=== PATIENT | male | born 1965 | race Caucasian/White ===

== ENCOUNTER → 2019-09-01 08:19 | Outpatient (BNVA) | payer MEDICARE, MEDICAID, SELFPAY | PROVIDERS: Family Provider Nurse Practitioner Psychiatric/Mental Health; Visit Provider Nurse Practitioner Psychiatric/Mental Health | DX: F20.5 Residual schizophrenia (principal); F41.1 Generalized anxiety disorder; F84.0 Autistic disorder | CPT/HCPCS: 99213 ==

== ENCOUNTER → 2019-12-01 07:45 | Outpatient (BNVA) | payer MEDICARE, MEDICAID, SELFPAY | PROVIDERS: Family Provider Nurse Practitioner Psychiatric/Mental Health; Visit Provider Nurse Practitioner Psychiatric/Mental Health | DX: F20.5 Residual schizophrenia (principal); F41.1 Generalized anxiety disorder; F84.0 Autistic disorder | CPT/HCPCS: 99213 ==

== ENCOUNTER → 2020-03-01 07:39 | Outpatient (BNVA) | payer MEDICARE, MEDICAID, SELFPAY | PROVIDERS: Family Provider Nurse Practitioner Psychiatric/Mental Health; Visit Provider Nurse Practitioner Psychiatric/Mental Health | DX: F20.5 Residual schizophrenia (principal); F41.1 Generalized anxiety disorder; F84.0 Autistic disorder | CPT/HCPCS: 99213 ==

== ENCOUNTER → 2020-05-14 11:54 | Outpatient (BNVA) | payer MEDICARE, MEDICAID, SELFPAY | PROVIDERS: Family Provider Nurse Practitioner Psychiatric/Mental Health; Visit Provider Nurse Practitioner Family | DX: E11.9 Type 2 diabetes mellitus without complications (principal); Z79.4 Long term (current) use of insulin; I10 Essential (primary) hypertension; E78.2 Mixed hyperlipidemia; E55.9 Vitamin D deficiency, unspecified | CPT/HCPCS: 80053; 82306; 83036; 85025 ==

== ENCOUNTER → 2020-05-31 08:36 | Outpatient (BNVA) | payer MEDICARE, MEDICAID, SELFPAY | PROVIDERS: Family Provider Nurse Practitioner Psychiatric/Mental Health; Visit Provider Nurse Practitioner Psychiatric/Mental Health | DX: F20.5 Residual schizophrenia (principal); F41.1 Generalized anxiety disorder; F84.0 Autistic disorder | CPT/HCPCS: 99214 ==

== ENCOUNTER → 2020-08-29 10:41 | Outpatient (BNVA) | payer MEDICARE, MEDICAID, SELFPAY | PROVIDERS: Family Provider Nurse Practitioner Psychiatric/Mental Health; Visit Provider Nurse Practitioner Family | DX: E55.9 Vitamin D deficiency, unspecified (principal); E11.9 Type 2 diabetes mellitus without complications; Z79.4 Long term (current) use of insulin; I10 Essential (primary) hypertension; E78.2 Mixed hyperlipidemia | CPT/HCPCS: 80053; 80061; 81003; 82306; 83036; 83735; 84100; 84439; 84443; 85025 ==

== ENCOUNTER → 2020-09-06 08:38 | Outpatient (BNVA) | payer MEDICARE, MEDICAID, SELFPAY | PROVIDERS: Family Provider Nurse Practitioner Psychiatric/Mental Health; Visit Provider Nurse Practitioner Psychiatric/Mental Health | DX: F20.5 Residual schizophrenia (principal); F41.1 Generalized anxiety disorder; F84.0 Autistic disorder | CPT/HCPCS: 99214 ==

== ENCOUNTER → 2021-02-28 08:02 | Outpatient (BNVA) | payer MEDICARE, MEDICAID, SELFPAY | PROVIDERS: Family Provider Nurse Practitioner Psychiatric/Mental Health; PCP Nurse Practitioner Family; Visit Provider Nurse Practitioner Psychiatric/Mental Health | DX: F20.5 Residual schizophrenia (principal); F41.1 Generalized anxiety disorder; F84.0 Autistic disorder | CPT/HCPCS: 99214 ==

== ENCOUNTER → 2021-06-06 07:48 | Outpatient (BNVA) | payer MEDICARE, MEDICAID, SELFPAY | PROVIDERS: Family Provider Nurse Practitioner Psychiatric/Mental Health; PCP Nurse Practitioner Family; Visit Provider Nurse Practitioner Psychiatric/Mental Health | DX: F20.5 Residual schizophrenia (principal); F41.1 Generalized anxiety disorder; F84.0 Autistic disorder | CPT/HCPCS: 99214 ==

== ENCOUNTER → 2021-09-05 08:10 | Outpatient (BNVA) | payer MEDICARE, MEDICAID, SELFPAY | PROVIDERS: Family Provider Nurse Practitioner Psychiatric/Mental Health; PCP Nurse Practitioner Family; Visit Provider Nurse Practitioner Psychiatric/Mental Health | DX: F20.5 Residual schizophrenia (principal); F41.1 Generalized anxiety disorder; F84.0 Autistic disorder | CPT/HCPCS: 99214 ==

== ENCOUNTER → 2021-09-18 00:01 | Outpatient (BNVA) | payer MEDICARE, MEDICAID, SELFPAY | PROVIDERS: Family Provider Nurse Practitioner Psychiatric/Mental Health; PCP Nurse Practitioner Family; Visit Provider Nurse Practitioner | DX: I10 Essential (primary) hypertension (principal); F41.1 Generalized anxiety disorder; E11.9 Type 2 diabetes mellitus without complications; Z79.4 Long term (current) use of insulin; E78.2 Mixed hyperlipidemia; Z12.5 Encounter for screening for malignant neoplasm of prostate | CPT/HCPCS: 80053; 80061; 81000; 83036; 84443; 85025; G0103 ==

== ENCOUNTER → 2022-08-05 10:36 | Outpatient (BNVA) | payer MEDICARE, MEDICAID, SELFPAY | PROVIDERS: Family Provider Nurse Practitioner Psychiatric/Mental Health; PCP Nurse Practitioner; Visit Provider Nurse Practitioner | DX: I10 Essential (primary) hypertension (principal); E78.2 Mixed hyperlipidemia; G25.71 Drug induced akathisia; Z79.4 Long term (current) use of insulin; E11.9 Type 2 diabetes mellitus without complications; E55.9 Vitamin D deficiency, unspecified; Z12.5 Encounter for screening for malignant neoplasm of prostate | CPT/HCPCS: 80053; 80061; 81000; 82306; 83036; 84443; 85025; G0103 ==

== ENCOUNTER → 2022-08-06 13:37 | Outpatient (BNVA) | payer MEDICARE, MEDICAID, SELFPAY | PROVIDERS: Family Provider Nurse Practitioner Psychiatric/Mental Health; PCP Nurse Practitioner; Visit Provider Nurse Practitioner | DX: D64.9 Anemia, unspecified (principal) | CPT/HCPCS: 82270 ==

== ENCOUNTER → 2022-08-07 10:07 | Outpatient (BNVA) | payer MEDICARE, MEDICAID, SELFPAY | PROVIDERS: Family Provider Nurse Practitioner Psychiatric/Mental Health; PCP Nurse Practitioner; Visit Provider Nurse Practitioner | DX: D64.9 Anemia, unspecified (principal) | CPT/HCPCS: 85025 ==

== ENCOUNTER → 2023-02-24 10:38 | Outpatient (BNVA) | payer MEDICARE, MEDICAID, OTHER, SELFPAY | PROVIDERS: Family Provider Nurse Practitioner Psychiatric/Mental Health; PCP Nurse Practitioner Family; Visit Provider Nurse Practitioner Family | DX: E55.9 Vitamin D deficiency, unspecified (principal); E11.9 Type 2 diabetes mellitus without complications; E78.2 Mixed hyperlipidemia; Z12.5 Encounter for screening for malignant neoplasm of prostate; G25.71 Drug induced akathisia; I10 Essential (primary) hypertension | CPT/HCPCS: 80053; 80061; 81003; 82306; 83036; 84443; 85007; 85027; G0103 ==

== ENCOUNTER → 2023-06-09 10:57 | Outpatient (BNVA) | payer MEDICARE, MEDICAID, SELFPAY | PROVIDERS: Family Provider Nurse Practitioner Psychiatric/Mental Health; PCP Nurse Practitioner Family; Visit Provider Nurse Practitioner Family | DX: Z79.899 Other long term (current) drug therapy (principal) | CPT/HCPCS: 80061; 83036 ==

== ENCOUNTER → 2023-08-31 10:05 | Outpatient (BNVA) | payer MEDICARE, MEDICAID, SELFPAY | PROVIDERS: Family Provider Nurse Practitioner Psychiatric/Mental Health; PCP Nurse Practitioner Family; Visit Provider Nurse Practitioner Family | DX: E55.9 Vitamin D deficiency, unspecified (principal); I10 Essential (primary) hypertension; E78.2 Mixed hyperlipidemia; E11.9 Type 2 diabetes mellitus without complications; Z79.4 Long term (current) use of insulin; G25.71 Drug induced akathisia | CPT/HCPCS: 80053; 80061; 81003; 82306; 83036; 84443; 85025 ==

== ENCOUNTER → 2024-02-25 09:31 | Outpatient (BNVA) | payer MEDICARE, MEDICAID, OTHER, SELFPAY | PROVIDERS: Family Provider Nurse Practitioner Psychiatric/Mental Health; PCP Nurse Practitioner Family; Visit Provider Nurse Practitioner Family | DX: E55.9 Vitamin D deficiency, unspecified (principal); I10 Essential (primary) hypertension; E78.2 Mixed hyperlipidemia; E11.9 Type 2 diabetes mellitus without complications; Z79.4 Long term (current) use of insulin; G25.71 Drug induced akathisia | CPT/HCPCS: 80053; 80061; 81003; 82306; 83036; 84443; 85025 ==

== ENCOUNTER → 2024-05-26 10:03 | Outpatient (BNVA) | payer MEDICARE, MEDICAID, OTHER, SELFPAY | PROVIDERS: Family Provider Nurse Practitioner Psychiatric/Mental Health; PCP Nurse Practitioner Family; Visit Provider Nurse Practitioner Family | DX: I10 Essential (primary) hypertension (principal); E55.9 Vitamin D deficiency, unspecified | CPT/HCPCS: 80053; 82306 ==

== ENCOUNTER → 2024-08-25 10:22 | Outpatient (BNVA) | payer MEDICARE, MEDICAID, SELFPAY | PROVIDERS: Family Provider Nurse Practitioner Psychiatric/Mental Health; PCP Nurse Practitioner Family; Visit Provider Nurse Practitioner Family | DX: Z12.11 Encounter for screening for malignant neoplasm of colon (principal); E55.9 Vitamin D deficiency, unspecified; I10 Essential (primary) hypertension; E78.2 Mixed hyperlipidemia; E11.9 Type 2 diabetes mellitus without complications; Z79.4 Long term (current) use of insulin; G25.71 Drug induced akathisia | CPT/HCPCS: 80053; 80061; 81003; 82306; 83036; 84443; 85025 ==

== ENCOUNTER → 2024-09-07 08:58 | Outpatient (BNVA) | payer MEDICARE, MEDICAID, SELFPAY | PROVIDERS: Family Provider Nurse Practitioner Psychiatric/Mental Health; PCP Nurse Practitioner Family; Visit Provider Student in an Organized Health Care Education/Training Program | DX: Z12.11 Encounter for screening for malignant neoplasm of colon (principal) | CPT/HCPCS: 99024; 99204 ==

== ENCOUNTER 2024-10-10 07:00 | Day surgery (SDC) | payer MEDICARE, MEDICAID, SELFPAY ==
[2024-10-10 07:32] VITALS: BP 157/88; PULSE 47; RESP 18; TEMP 36.3; O2SAT 99; BMI 21.2
[2024-10-10] MEDS: sodium chloride 0.9% 1,000 ML 15 ML IV (07:40)
--- NOTE | 2024-10-10 08:41 | W.PM.OPSFHP ---
Same Day Surgery H&P Indication for Procedure/HPI DATE OF PROCEDURE: October 10, 2024 CHIEF COMPLAINT/INDICATIONFOR SURGICAL PROCEDURE: unintentional weight loss PREOP DIAGNOSIS: colorectal cancer PLANNED PROCEDURE: Operation Date: 10/10/24 08:45 Proposed Procedures p Colonoscopy 09857 G0105, Z12.11(Not Applicable) - Yimi Culp MD Medications/Allergies* Home Medications ?Medication ?Instructions ?Recorded ?Confirmed ?Type ferrous sulfate 325 mg (65 mg 325 mg PO DAILY 08/31/23 10/04/24 History iron) tablet atorvastatin 20 mg tablet 20 mg PO DAILY 10/04/24 10/04/24 History cetirizine 10 mg tablet 10 mg PO DAILY 10/04/24 10/04/24 History famotidine 40 mg tablet 40 mg PO DAILY 10/04/24 10/04/24 History lisinopril 10 mg tablet 10 mg PO DAILY 10/04/24 10/04/24 History potassium chloride 20 mEq 20 meq PO DAILY 10/04/24 10/04/24 History tablet,extended release(part/cryst) Allergies/Adverse Reactions Allergy/AdvReac Type Severity Reaction Status Date / Time No Known Allergies Allergy Verified 09/07/24 09:03 Current Medications: Generic Name Dose Route Start Last Admin Trade Name Freq PRN Reason Stop Dose Admin Sodium Chloride 1,000 mls @ 15 mls/hr 10/10/24 07:14 10/10/24 07:40 Sodium Chloride 0.9% IV 10/11/24 07:13 15 mls/hr .Q24H PRN Administration COLONOSCOPY FLUIDS Pertinent History/Comorbid Conditions* Medical History (Updated 08/28/24 @ 21:21 by RADHA Dalton) Encounter for wellness examination Colon cancer screening Mild acid reflux Encounter for general adult medical examination without abnormal findings Prostate cancer screening Drug induced akathisia Psychiatric care Encounter for medication review Diabetes mellitus, type II Essential hypertension Vitamin D deficiency Mixed hyperlipidemia Autism spectrum disorder Generalized anxiety disorder Chronic residual schizophrenia Social History Smoking and tobacco/nicotine status: never used tobacco/nicotine Pertinent Exam Findings alert, oriented x 3, clear to auscultation bilaterally, regular rate & rhythm and procedure specific exam findings abdomen soft, nt, nd Recommendations Risks and benefits of procedure reviewed Surgery/Procedure today Other Plans: Obtained consent from guardian Coding Level of Care Code Acute Code for Chg Fwd
--- NOTE | 2024-10-10 08:46 | ANES.PREANE2 ---
Pre-Anesthetic Assessment Height/Weight: Height 6 ft 2 in Weight 165 lb Temp Pulse Resp BP Pulse Ox O2 Del Method 97.4 F L 47 L 18 157/88 99 Room Air 10/10/24 07:32 10/10/24 07:32 10/10/24 07:32 10/10/24 07:32 10/10/24 07:32 10/10/24 07:32 Preop Diagnosis: colorectal cancer Operation Date: 10/10/24 08:45 Proposed Procedures p Colonoscopy 89204 G0105, Z12.11(Not Applicable) - Yimi Culp MD Was Beta Abdullahi taken within 24 hours: N/A Was Clonidine taken within 24 hours: N/A Last intake: Intake Last Liquid Date 10/09/24 Last Liquid Time 21:00 Last Solid Date 10/08/24 Last Solid Time 18:00 Social No alcohol and No tobacco Exam alert, oriented x 3 and regular rate & rhythm Airway Submandibular: within normal limits Cervical ROM: within normal limits Mallampati: Class III Comments: Comments: Poor dentition, no loose teeth Anesthetic Plan ASA status: 3 Anesthesia: MAC Other: Patient has schizophrenia, caregiver at bedside No known prior issues with anesthesia Completed bowel prep History of hypertension on lisinopril and propranolol GERD, on Pepcid daily Autism spectrum disorder as well Plan for MAC anesthesia Medications/Allergies Home Medications ?Medication ?Instructions ?Recorded ?Confirmed ?Last Taken ?Type ferrous sulfate 325 mg (65 mg 325 mg PO DAILY 08/31/23 10/04/24 10/09/24 History iron) tablet multivitamin with iron-mineral 1 tab PO DAILY #30 tabs 09/02/23 10/04/24 10/09/24 Rx melatonin 5 mg tablet 5 mg PO BEDTIME sleep #30 tabs 03/03/24 10/04/24 10/09/24 Rx lorazepam 2 mg tablet (Ativan) 2 mg PO DAILY PRN acute, severe 05/11/24 10/04/24 10/09/24 Rx agitation #30 tabs lorazepam 1 mg tablet 1 mg PO TID #90 tabs 09/01/24 10/04/24 10/09/24 Rx mirtazapine 30 mg tablet 30 mg PO BEDTIME #30 tabs 09/01/24 10/04/24 10/09/24 Rx paliperidone 3 mg tablet,extended 3 mg PO QAM #30 tabs 09/01/24 10/04/24 10/09/24 Rx release 24 hr paliperidone 6 mg tablet,extended 6 mg PO .morning #30 tabs 09/01/24 10/04/24 10/09/24 Rx release 24 hr (Invega) propranolol 20 mg tablet 20 mg PO DIRECTED #60 tabs 09/01/24 10/04/24 10/09/24 Rx atorvastatin 20 mg tablet 20 mg PO DAILY 10/04/24 10/04/24 10/09/24 History cetirizine 10 mg tablet 10 mg PO DAILY 10/04/24 10/04/24 10/09/24 History famotidine 40 mg tablet 40 mg PO DAILY 10/04/24 10/04/24 10/09/24 History lisinopril 10 mg tablet 10 mg PO DAILY 10/04/24 10/04/24 10/09/24 History potassium chloride 20 mEq 20 meq PO DAILY 10/04/24 10/04/24 10/09/24 History tablet,extended release(part/cryst) Allergies Allergy/AdvReac Type Severity Reaction Status Date / Time No Known Allergies Allergy Verified 09/07/24 09:03 Current Medications Generic Name Dose Route Start Last Admin Trade Name Freq PRN Reason Stop Dose Admin Sodium Chloride 1,000 mls @ 15 mls/hr 10/10/24 07:14 10/10/24 07:40 Sodium Chloride 0.9% IV 10/11/24 07:13 15 mls/hr .Q24H PRN Administration COLONOSCOPY FLUIDS PFSH Anesthesia Medical History Encounter for wellness examination Colon cancer screening Mild acid reflux Encounter for general adult medical examination without abnormal findings Prostate cancer screening Drug induced akathisia Psychiatric care Encounter for medication review Diabetes mellitus, type II Essential hypertension Vitamin D deficiency Mixed hyperlipidemia Autism spectrum disorder Generalized anxiety disorder Chronic residual schizophrenia Social History Smoking and tobacco/nicotine status: never used tobacco/nicotine
[2024-10-10 09:12] VITALS: BP 157/96; PULSE 64; RESP 18; TEMP 36.3; O2SAT 98
[2024-10-10 09:25] VITALS: BP 175/89; PULSE 58; RESP 16; O2SAT 98
== END 2024-10-10 09:33 | disposition home or self-care (01) ==
PROVIDERS: PCP Nurse Practitioner Family; Visit Provider Student in an Organized Health Care Education/Training Program
PROC: 0DJD8ZZ Inspection of Lower Intestinal Tract, Via Natural or Artificial Opening Endoscopic (ICD-10-PCS; CPT 45378; principal; 2025-01-09 07:00)
DX: R63.4 Abnormal weight loss (principal); E11.9 Type 2 diabetes mellitus without complications; E78.2 Mixed hyperlipidemia; I10 Essential (primary) hypertension; K21.9 Gastro-esophageal reflux disease without esophagitis; F84.0 Autistic disorder; F20.5 Residual schizophrenia; Z53.8 Procedure and treatment not carried out for other reasons; Z79.899 Other long term (current) drug therapy
CPT/HCPCS: 45378; J2704; J3490; J7030

== ENCOUNTER 2025-01-09 06:00 | Day surgery (SDC) | payer MEDICARE, MEDICAID, SELFPAY ==
[2025-01-09 06:24] VITALS: BMI 20.7
[2025-01-09 06:26] VITALS: BP 162/77; PULSE 40; RESP 18; TEMP 36.2; O2SAT 98
--- NOTE | 2025-01-09 06:52 | ANES.PREANE2 ---
Pre-Anesthetic Assessment Height/Weight: Height 1.88 m Weight 73.028 kg Temp Pulse Resp BP Pulse Ox O2 Del Method 97.1 F L 40 L 18 162/77 98 Room Air 01/09/25 06:26 01/09/25 06:26 01/09/25 06:26 01/09/25 06:26 01/09/25 06:26 01/09/25 06:26 Preop Diagnosis: screening Operation Date: 01/09/25 07:00 Proposed Procedures p Colonoscopy [id number] G0105, Z12.11(Not Applicable) - Yimi Culp MD Was Beta Abdullahi taken within 24 hours: N/A Was Clonidine taken within 24 hours: N/A Last intake: Intake Last Liquid Date 01/08/25 Last Liquid Time 21:00 Last Solid Date 01/07/25 Social No alcohol and No tobacco Exam regular rate & rhythm Airway Cervical ROM: within normal limits Mallampati: Class III Dentition: chipped History/ROS No significant complaints Pulmonary None reported CV/HEM Hypertension None reported Hepatic None reported GI None reported Metabolic None reported Musc/skel None reported Neuropsych austism spectrum disorder, schizophrenic Anesthetic Plan ASA status: 3 Anesthesia: MAC Risk of > 500 ml blood loss (7ml/kg in children): No Medications/Allergies Home Medications ?Medication ?Instructions ?Recorded ?Confirmed ?Last Taken ?Type ferrous sulfate 325 mg (65 mg 325 mg PO DAILY 08/31/23 01/03/25 01/08/25 History iron) tablet multivitamin with iron-mineral 1 tab PO DAILY #30 tabs 09/02/23 01/03/25 01/08/25 Rx melatonin 5 mg tablet 5 mg PO BEDTIME sleep #30 tabs 03/03/24 01/03/25 01/08/25 Rx lorazepam 2 mg tablet (Ativan) 2 mg PO DAILY PRN acute, severe 05/11/24 01/09/25 10/09/24 Rx agitation #30 tabs atorvastatin 20 mg tablet 20 mg PO DAILY 10/04/24 01/03/25 01/08/25 History lisinopril 10 mg tablet 10 mg PO DAILY 10/04/24 01/03/25 01/08/25 History potassium chloride 20 mEq 20 meq PO DAILY 10/04/24 01/03/25 01/08/25 History tablet,extended release(part/cryst) peg 3350-electrolytes 236 240 ml PO Q10M #4,000 mL 10/10/24 01/03/25 01/08/25 Rx gram-22.74 gram-6.74 gram-5.86 gram solution (Golytely) cetirizine 10 mg tablet 10 mg PO DAILY #90 tabs 11/15/24 01/03/25 01/08/25 Rx famotidine 40 mg tablet 40 mg PO DAILY #90 tabs 11/21/24 01/03/25 01/08/25 Rx lorazepam 1 mg tablet 1 mg PO TID #90 tabs 12/01/24 01/03/25 01/09/25 Rx mirtazapine 30 mg tablet 30 mg PO BEDTIME #30 tabs 12/01/24 01/03/25 01/08/25 Rx paliperidone 3 mg tablet,extended 3 mg PO QAM #30 tabs 12/01/24 01/03/25 01/08/25 Rx release 24 hr paliperidone 6 mg tablet,extended 6 mg PO .morning #30 tabs 12/01/24 01/03/25 01/08/25 Rx release 24 hr (Invega) propranolol 20 mg tablet 20 mg PO DIRECTED #60 tabs 12/01/24 01/03/25 01/08/25 Rx linaclotide 145 mcg capsule See Rx Instructions .Route 01/02/25 01/03/25 01/08/25 Rx (Linzess) .COMPLEX #30 caps Allergies Allergy/AdvReac Type Severity Reaction Status Date / Time No Known Allergies Allergy Verified 01/09/25 06:15 Current Medications Generic Name Dose Route Start Last Admin Trade Name Freq PRN Reason Stop Dose Admin Sodium Chloride 1,000 mls @ 15 mls/hr 01/09/25 06:04 01/09/25 06:24 Sodium Chloride 0.9% IV 01/10/25 06:03 15 mls/hr .Q24H PRN Administration COLONOSCOPY FLUIDS PFSH Anesthesia Medical History Chronic idiopathic constipation Encounter for wellness examination Colon cancer screening Mild acid reflux Encounter for general adult medical examination without abnormal findings Prostate cancer screening Drug induced akathisia Psychiatric care Encounter for medication review Diabetes mellitus, type II Essential hypertension Vitamin D deficiency Mixed hyperlipidemia Autism spectrum disorder Generalized anxiety disorder Chronic residual schizophrenia Social History Smoking and tobacco/nicotine status: never used tobacco/nicotine
--- NOTE | 2025-01-09 07:01 | W.PM.OPSFHP ---
Same Day Surgery H&P Indication for Procedure/HPI DATE OF PROCEDURE: January 09, 2025 CHIEF COMPLAINT/INDICATIONFOR SURGICAL PROCEDURE: screening colonoscopy PREOP DIAGNOSIS: screening colonoscopy PLANNED PROCEDURE: Operation Date: 01/09/25 07:00 Proposed Procedures p Colonoscopy 40391 G0105, Z12.11(Not Applicable) - Yimi Culp MD Medications/Allergies* Home Medications ?Medication ?Instructions ?Recorded ?Confirmed ?Type ferrous sulfate 325 mg (65 mg 325 mg PO DAILY 08/31/23 01/03/25 History iron) tablet atorvastatin 20 mg tablet 20 mg PO DAILY 10/04/24 01/03/25 History lisinopril 10 mg tablet 10 mg PO DAILY 10/04/24 01/03/25 History potassium chloride 20 mEq 20 meq PO DAILY 10/04/24 01/03/25 History tablet,extended release(part/cryst) Allergies/Adverse Reactions Allergy/AdvReac Type Severity Reaction Status Date / Time No Known Allergies Allergy Verified 01/09/25 06:15 Current Medications: Generic Name Dose Route Start Last Admin Trade Name Freq PRN Reason Stop Dose Admin Sodium Chloride 1,000 mls @ 15 mls/hr 01/09/25 06:04 01/09/25 06:24 Sodium Chloride 0.9% IV 01/10/25 06:03 15 mls/hr .Q24H PRN Administration COLONOSCOPY FLUIDS Pertinent History/Comorbid Conditions* Medical History (Updated 10/10/24 @ 18:56 by RADHA Dalton) Chronic idiopathic constipation Encounter for wellness examination Colon cancer screening Mild acid reflux Encounter for general adult medical examination without abnormal findings Prostate cancer screening Drug induced akathisia Psychiatric care Encounter for medication review Diabetes mellitus, type II Essential hypertension Vitamin D deficiency Mixed hyperlipidemia Autism spectrum disorder Generalized anxiety disorder Chronic residual schizophrenia Social History Smoking and tobacco/nicotine status: never used tobacco/nicotine Pertinent Exam Findings alert, oriented x 3, clear to auscultation bilaterally, regular rate & rhythm and procedure specific exam findings abdomen soft, nt, nd Recommendations Risks and benefits of procedure reviewed and Patient/family agree to proceed Surgery/Procedure today Other Plans: Consented POA Coding Level of Care Code Acute Code for Chg Fwvinicio
[2025-01-09 07:17] VITALS: BP 157/76; PULSE 49; RESP 20; TEMP 36.2; O2SAT 100
--- NOTE | 2025-01-09 07:40 | ANE.PACU2 ---
Inpatient post-anesthesia follow up: Airway intact: Yes Vital signs: Temperature 97.1 F Pulse Rate 49 Respiratory Rate 20 Blood Pressure 157/76 Pulse Oximetry 100 Oxygen Delivery Me thod Room Air Oxygen Flow Rate Fraction of Inspir ed Oxygen Hydration adequate: Yes Nausea and vomiting: No Pain level: 1 Mental status: Baseline
== END 2025-01-09 07:39 | disposition home or self-care (01) ==
PROVIDERS: PCP Nurse Practitioner Family; Visit Provider Student in an Organized Health Care Education/Training Program
PROC: 0DJD8ZZ Inspection of Lower Intestinal Tract, Via Natural or Artificial Opening Endoscopic (ICD-10-PCS; CPT 45330; 2025-01-09 07:00)
DX: Z12.11 Encounter for screening for malignant neoplasm of colon (principal); K59.04 Chronic idiopathic constipation; E11.9 Type 2 diabetes mellitus without complications; I10 Essential (primary) hypertension; E78.2 Mixed hyperlipidemia; F41.9 Anxiety disorder, unspecified; F84.0 Autistic disorder; F20.5 Residual schizophrenia; R00.1 Bradycardia, unspecified
CPT/HCPCS: 45378; J2704; J3490; J7030

== ENCOUNTER → 2025-03-08 13:39 | Outpatient (BNVA) | payer MEDICARE, MEDICAID, SELFPAY | PROVIDERS: PCP Nurse Practitioner Family; Referring Provider Student in an Organized Health Care Education/Training Program; Visit Provider Internal Medicine Cardiovascular Disease | DX: R07.9 Chest pain, unspecified (principal); R00.1 Bradycardia, unspecified | CPT/HCPCS: 93005 ==

== ENCOUNTER 2025-03-09 08:36 | Outpatient (CLI) | payer MEDICARE, MEDICAID, SELFPAY | END 2025-03-09 08:37 | disposition home or self-care (01) | LOC: LAB 03-15 07:27 | PROVIDERS: PCP Nurse Practitioner Family; Visit Provider Nurse Practitioner Family | DX: E11.9 Type 2 diabetes mellitus without complications (principal); Z79.4 Long term (current) use of insulin; I10 Essential (primary) hypertension; E78.2 Mixed hyperlipidemia; Z79.899 Other long term (current) drug therapy | CPT/HCPCS: 80053; 80061; 81003; 82306; 83036; 83880; 84443; 85025; G0103 ==

== ENCOUNTER 2025-03-28 11:59 | Outpatient (CLI) | payer MEDICARE, MEDICAID, SELFPAY ==
--- NOTE | 2025-03-28 | ECG_ITS ---
[facility]28 Pat Name: Ken Krause Department: Room: Gender: Male [employer]: : 1965 Requested By: Nadira Guaman Order Number: [id number] Cherry MD: Nahun Bustillo M.D. Interpretive Statements EXERCISE STRESS TEST EXERCISE DATA: The patient was exercised by Jeff protocol. Baseline heart rate was 52 beats per minute. Baseline blood pressure was 153/82 millimeters of mercury. Maximal predicted heart rate was 163 beats per minute. Maximum heart rate achieved was 142, which was 87% of the maximum predicted heart rate. Maximum blood pressure was 196/88 millimeters of mercury. Total exercise time was 5 minutes and 2 seconds. Maximum METs achieved was 7.0. The reason for ending the test was maximal effort achieved. The patient complained of shortness of breath during the stress test, which then resolved at the end of the test. ELECTROCARDIOGRAM: BASELINE: Showed sinus rhythm, normal axis, no significant ST-T changes at the baseline noted. [] EXERCISE: At the peak exercise level, [] No significant ST-T changes suggestive of ischemia noted. [] RECOVERY: During the recovery period, heart rate dropped appropriately. No significant ST-T changes in the recovery suggestive of ischemia noted. [] CONCLUSION: 1. Exercise capacity is fair. 2. Heart rate response was appropriate. 3. Blood pressure response was appropriate 4. Symptoms not suggestive of ischemia. 5. Stress test does not show ischemia Electronically Signed On 04-22-2025 15:02:34 CERAMICS ARTIST by Nahun Bustillo M.D. [email or web address]
[2025-03-28 12:18] VITALS: BMI 21.2
[2025-03-28 12:50] VITALS: BP 163/83; PULSE 60
--- NOTE | 2025-03-28 13:30 | USCV_ITS ---
Ken Krause Age: 59 Gender: M : 1965 Exam Date: 03/28/2025 13:33 Ordering Phys: Nadira Guaman MD ([email or web address]) Technologist: Exam Location: [facility] [place] Indication: cp BP: 120 / 70 HR: 63 Rhythm: Sinus Technical Quality: MEASUREMENTS (Male / Female) Normal Values 2D ECHO LV Diastolic Diameter PLAX 3.6 cm 4.2 - 5.9 / 3.9 - 5.3 cm IVS Diastolic Thickness 1.7 cm 0.6 - 1.0 / 0.6 - 0.9 cm IVS Systolic Thickness 1.8 cm LVPW Diastolic Thickness 1.6 cm 0.6 - 1.0 / 0.6 - 0.9 cm LVPW Systolic Thickness 2.7 cm LVOT Diameter 2.0 cm LV Ejection Fraction 2D Teich 59.8 % LV Ejection Fraction MOD 4C 67.1 % LV Ejection Fraction MOD 2C 40.2 % LV Ejection Fraction 2C AL 43.5 % LA Diameter 4.6 cm RA Systolic Volume 4C AL 63.1 ml RA Systolic Volume 4C MOD 60.8 ml LA Sys Volume AL 79.3 cm cubed LA Sys Volume Index AL 40.1 cm cubed/m squared Aorta at Sinotubular Diameter 3.1 cm M-MODE LA Ao Ratio MM 1.2 AV Cusp Separation MM 2.5 cm DOPPLER AV Peak Velocity 170.0 cm/s LVOT Peak Velocity 118.0 cm/s AV Area Cont Eq vti 2.5 cm squared AV Area Cont Eq pk 2.2 cm squared MV Peak Velocity 90.0 cm/s MV Area PHT 4.2 cm squared Mitral E to A Ratio 1.2 TV Peak Velocity 273.5 cm/s TR Peak Velocity 296.0 cm/s TR Peak Gradient 35.0 mmHg TV Peak E Velocity 95.0 cm/s PV Peak Velocity 143.0 cm/s FINDINGS Left Ventricle Mild concentric LVH. Normal wall motion and thickening. Estimated LVEF normal 60%. Right Ventricle Normal right ventricular size and systolic function. Right Atrium Normal right atrial size. Left Atrium Mildly increased left atrial size. IA Septum Normal interatrial septum. Mitral Valve Structurally normal mitral valve. Mild mitral valve regurgitation. Aortic Valve Structurally normal trileaflet aortic valve. No aortic valve stenosis. Tricuspid Valve Structurally normal tricuspid valve. Mild tricuspid valve regurgitation. Mildly elevated RV pressure) TV PG 30 mmHg. Pulmonic Valve Pulmonic valve not well visualized. Trace pulmonary valve regurgitation. Pericardium No pericardial effusion. Aorta Normal size aortic root and proximal ascending aorta. IVC Inferior vena cava not visualized. CONCLUSIONS Mild concentric LVH. Normal LV systolic function. Estimated LVEF normal at 60%. Mildly dilated left atrium with mild mitral regurgitation. Normal RV size and RV systolic function. Mildly elevated pulmonary systolic pressures (30 - 35 mmHg.) Clay Solis MD (Electronically Signed) Final Date: 02 April 2025 15:56 S
== END 2025-03-28 12:00 | disposition home or self-care (01) ==
PROVIDERS: PCP Nurse Practitioner Family; Visit Provider Internal Medicine Cardiovascular Disease
DX: R06.02 Shortness of breath (principal); R00.1 Bradycardia, unspecified
CPT/HCPCS: 80053; 80061; 81003; 82306; 83036; 83880; 84443; 85025; 93017; 93306; G0103